=== PATIENT | female | born 1975 | race Caucasian/White ===

== ENCOUNTER → 2024-07-09 10:52 | Outpatient (REF) | payer BC, SELFPAY | LOC: MRI 3T 10:52 | PROVIDERS: ATTENDING PHYSICIAN Otolaryngology; FAMILY PHYSICIAN Student in an Organized Health Care Education/Training Program | DX: H92.01 Otalgia, right ear (principal); R51.9 Headache, unspecified | CPT/HCPCS: 70553; A9575 ==